=== PATIENT | female | born 1990 | race Caucasian/White ===

== ENCOUNTER 2023-08-04 15:59 | Emergency (ER) | payer OTHER ==
[~2023-08-04] VITALS: Ht 177.8 cm; Wt 108.9 kg
[~2023-08-04 15:59] MED LIST: MOTRIN800 MG PO
== END 2023-08-04 18:29 | disposition home or self-care (01) ==
LOC: ED 15:59
DX: O26.893 Other specified pregnancy related conditions, third trimester (principal); R10.9 Unspecified abdominal pain; Z88.5 Allergy status to narcotic agent; Z91.040 Latex allergy status; Z98.890 Other specified postprocedural states; Z3A.34 34 weeks gestation of pregnancy